=== PATIENT | female | born 1980 | race Caucasian/White ===

== ENCOUNTER 2022-09-13 22:29 | Emergency (ER) | payer OTHER ==
[2022-09-13] MEDS ORDERED: HYDROmorphone 2 MG/ML Syringe IVPUSH ONE (22:42)
== END 2022-09-14 00:10 | disposition home or self-care (01) ==
LOC: LB.ED 22:29 → SUPCPDRO 22:29 → LB.ED 09-14 00:10
DX: R10.13 Epigastric pain (principal); Z88.0 Allergy status to penicillin; Z79.899 Other long term (current) drug therapy; Z98.84 Bariatric surgery status
CPT/HCPCS: 36415; 74176; 80053; 81001; 83690; 85025; 96374; 99284; J1170

== ENCOUNTER 2024-01-15 00:43 | Emergency (ER) | payer OTHER ==
[2024-01-15] MEDS: Prochlorperazine 10 MG/2 ML SDV IVPUSH ONE (01:06)
[2024-01-15] MEDS: HYDROmorphone 2 MG/ML Syringe IVPUSH ONE (01:09)
[2024-01-15] MEDS: diphenhydrAMINE 50 MG/ML SDV IVPUSH ONE (01:11)
[2024-01-15] MEDS: Sodium Chloride 0.9% 1,000 ML IV ONE (01:14)
[2024-01-15] MEDS: diphenhydrAMINE 50 MG/ML SDV ONE (01:14)
[2024-01-15] MEDS: Prochlorperazine 10 MG/2 ML SDV ONE (01:14)
[2024-01-15] MEDS: HYDROmorphone 2 MG/ML Syringe ONE (01:14)
[2024-01-15] MEDS ORDERED: Acetaminophen/HYDROcodone 325-5 MG Tab ONE (04:00)
[2024-01-15] MEDS: Prochlorperazine 10 MG Tab ONE (04:19)
[2024-01-15] MEDS: Prochlorperazine 10 MG Tab PO ONE (04:25)
== END 2024-01-15 04:21 | disposition home or self-care (01) ==
LOC: LB.ED 00:43
DX: N13.2 Hydronephrosis with renal and ureteral calculous obstruction (principal); Z98.890 Other specified postprocedural states; Z88.0 Allergy status to penicillin; Z88.1 Allergy status to other antibiotic agents; Z79.890 Hormone replacement therapy; Z79.899 Other long term (current) drug therapy; Z90.49 Acquired absence of other specified parts of digestive tract
CPT/HCPCS: 74176; 96361; 96374; 96375; 99284; A9270; J0780; J1170; J1200; J7030; Q0164; 99283